=== PATIENT | female | born 1990 | race American Indian/Alaskan Native ===

== ENCOUNTER 2017-08-29 17:29 | Outpatient (CLI) | payer MEDICAID ==
[2017-08-29 18:16] VITALS: BP 119/64
[2017-08-29] MEDS ORDERED: LACTATED RINGERS 1,000 ML IV SCH (19:00)
[2017-08-29] MEDS ORDERED: VISTARIL PO ONE (19:00)
== END 2017-08-29 19:12 | disposition home or self-care (01) ==
LOC: TRG 17:29
PROVIDERS: ATTEND Obstetrics & Gynecology
DX: Z34.93 Encounter for supervision of normal pregnancy, unspecified, third trimester (principal); Z3A.37 37 weeks gestation of pregnancy
CPT/HCPCS: 59025; 96360; J7120; Q0177

== ENCOUNTER 2017-09-11 11:10 | Inpatient (IN) | payer MEDICAID ==
[2017-09-11] MEDS ORDERED: LACTATED RINGERS 1,000 ML ONE ×2 (13:59→15:08)
[2017-09-11 15:53] LABS: Bacteria,Urine 2+ /HPF (Negative); Bilirubin,Urine NEG (Negative); Blood,Urine MOD (Negative); Color,Urine Yellow (Yellow); Mucus,Urine 1+ /HPF; Nitrite,Urine NEG (Negative); Urobilinogen,Urine < 2.0 mg/dL (<2.0)
[2017-09-11 15:53] LABS: Hematocrit 28.8 % (30.3-42.9); Hemoglobin 9.2 gm/dl (10.1-14.3); Mean Corpuscular HGB Conc 32 % (30-34); Mean Corpuscular Volume 78 fl (79-97); Platelet Count 238 K/mm3 (140-440); Red Blood Count 3.67 M/mm3 (3.65-5.03); Red Cell Distribution Width 16.5 % (13.2-15.2)
[2017-09-11 15:57] LABS: Mean Corpuscular Hemoglobin 25 pg (28-32)
[2017-09-11 16:17] LABS: Amphetamine Screen,Urine PRESUMPTIVE NEGATIVE; Benzodiazepines Screen,Urine PRESUMPTIVE NEGATIVE; Cannabinoid Screen,Urine PRESUMPTIVE NEGATIVE; Cocaine Screen,Urine PRESUMPTIVE NEGATIVE; Methadone Screen,Urine PRESUMPTIVE NEGATIVE; Opiate Screen,Urine PRESUMPTIVE NEGATIVE
[2017-09-11] MEDS: SUBLIMAZE IV PRN ×2 (18:24→23:54)
[2017-09-11] MEDS ORDERED: AMBIEN PO PRN (20:58)
[2017-09-11] MEDS ORDERED: COLACE PO PRN (20:58)
[2017-09-11] MEDS ORDERED: TYLENOL PO PRN (20:58)
[2017-09-11] MEDS ORDERED: MYLICON PO PRN (20:58)
[2017-09-11] MEDS ORDERED: ZOFRAN IV PRN (20:58)
--- NOTE | 2017-09-11 21:11 | History and Physical Report ---
History of Present Illness Date of examination: 09/11/17 (late entry) Date of admission: 09/11/17 14:14 Chief complaint: contractions History of present illness: pt presents c/o contractions. She has had pnc in [facility] but states she has moved to this area and hence the reason for f/u at this the hospital. Pt was in latent labor but noted to have variable decel times one. sono done and showed RADHA of 4.6cm. At time of admission pt did not have favorable cx, so plan was to admit hydrate and repeat sono in am. Since admission, contractions have spaced and pt pain has improved. Pt last seen by her ob on last week and states sono showed EFW of 7lbs 4oz. Past History Past Medical History: no pertinent history Past Surgical History: no surgical history [employer] History: denies: abnormal PAP smear, chlamydia, gonorrhea Social history: no significant social history, single - Obstetrical History Expected Date of Delivery: 09/16/17 Actual Gestation: 39 Week(s) 3 Day(s) : 1 Medications and Allergies Allergies Allergy/AdvReac Type Severity Reaction Status Date / Time No Known Allergies Allergy Verified 09/11/17 11:17 Home Medications Medication Instructions Recorded Confirmed Last Taken Type Gummies 2 tab PO DAILY 09/11/17 09/11/17 09/09/17 19:00 History Active Meds: Active Medications Acetaminophen (Tylenol) 650 mg PO Q4H PRN PRN Reason: Pain MILD(1-3)/Fever >100.5/ARAGON Docusate Sodium (Colace) 100 mg PO Q12H PRN PRN Reason: Constipation Fentanyl (Sublimaze) 100 mcg IV Q2H PRN PRN Reason: Labor Pain Last Admin: 09/11/17 18:24 Dose: 100 mcg Lactated Ringer's (Lactated Ringers) 1,000 mls @ 125 mls/hr IV DIRECT ADAM Multivitamins/Iron/Calcium ( Vitamin) 1 each PO QDAY ADAM Ondansetron HCl (Zofran) 4 mg IV Q6H PRN PRN Reason: Nausea And Vomiting Simethicone (Mylicon) 80 mg PO Q6H PRN PRN Reason: Gas pain Zolpidem Tartrate (Ambien) 10 mg PO ONCE PRN PRN Reason: Sleep - Vital Signs Vital signs: Vital Signs Pulse Pulse Ox 104 H 97 09/11/17 11:18 09/11/17 11:18 Temp Pulse Resp BP Pulse Ox 98.7 F 86 18 130/72 97 09/11/17 19:00 09/11/17 19:09 09/11/17 18:24 09/11/17 19:09 09/11/17 18:13 - Physical Exam Cardiovascular: Normal S1, Normal S2 Lungs: Positive: Clear to auscultation Abdomen: Positive: normal appearance, soft. Negative: distention, tenderness, guarding Genitourinary (Female): Positive: normal external genitalia, normal perenium - Obstetrical FHR: category 1 Results Result Diagrams: 09/11/17 14:00 Abnormal lab results 09/11/17 Range/Units 14:00 WBC 11.7 H (4.5-11.0) K/mm3 Hgb 9.2 L (10.1-14.3) gm/dl Hct 28.8 L (30.3-42.9) % MCV 78 L (79-97) fl MCH 25 L (28-32) pg RDW 16.5 H (13.2-15.2) % All other labs normal. Assessment and Plan - Patient Problems (1) 39 weeks gestation of Current Visit: Yes Status: Acute (2) RADHA (amniotic fluid index) borderline low Current Visit: Yes Status: Acute Plan to address problem: -admit -cx not favorable. IV hydrate and repeat RADHA in the am (3) Anemia affecting in third trimester Current Visit: Yes Status: Acute (4) Labor, prolonged latent phase Current Visit: Yes Status: Acute Plan to address problem: -monitor if becomes active with augment if needed
[2017-09-11] MEDS: LACTATED RINGERS 1,000 ML IV SCH (22:21)
[2017-09-12] MEDS: SUBLIMAZE IV PRN (02:06)
[2017-09-12] MEDS: LACTATED RINGERS 1,000 ML IV SCH ×3 (02:13→08:21)
[2017-09-12] MEDS ORDERED: ePHEDrine SULFATE ONE (02:33)
[2017-09-12] MEDS ORDERED: ePHEDrine SULFATE IV PRN ×2 (04:28→06:54)
[2017-09-12] MEDS ORDERED: NARCAN 2 MG/2 ML IV PRN (04:28)
--- NOTE | 2017-09-12 04:29 | Anesthesia Consultation ---
Anesthesia Consult and Med Hx Date of service: 09/12/17 - Airway Anesthetic Teeth Evaluation: Good ROM Head & Neck: Adequate Mental/Hyoid Distance: Adequate Mallampati Class: Class II Intubation Access Assessment: Probably Good - Pulmonary Exam CTA: Yes - Cardiac Exam Cardiac Exam: RRR - Pre-Operative Health Status ASA Pre-Surgery Classification: ASA2 Proposed Anesthetic Plan: Epidural - Pulmonary Hx Smoking: No Hx Asthma: No COPD: No Hx Pneumonia: No - Cardiovascular System Hx Hypertension: No - Central Nervous System Hx Seizures: No Hx Psychiatric Problems: No - Endocrine Hx Renal Disease: No Hx End Stage Renal Disease: No Hx Hypothyroidism: No Hx Hyperthyroidism: No - Hematic Hx Anemia: No Hx Sickle Cell Disease: No - Other Systems Hx Alcohol Use: No
[2017-09-12] MEDS ORDERED: fentaNYL-BUPIV 2 MCG/ML-0.125% 200 MCG/100 ML BAG EPIDURAL SCH (05:00)
[2017-09-12] MEDS ORDERED: PITOCin/NS 30 UNIT/500ML 30,000 MILLIUNITS/500 ML BAG IV ONE (05:29)
[2017-09-12] MEDS ORDERED: PITOCin/NS 30 UNIT/500ML 30,000 MILLIUNITS/500 ML BAG IV SCH (05:31)
--- NOTE | 2017-09-12 06:51 | Progress Note ---
Assessment and Plan - Patient Problems (1) 39 weeks gestation of Current Visit: Yes Status: Acute (2) RADHA (amniotic fluid index) borderline low Current Visit: Yes Status: Acute (3) Anemia affecting in third trimester Current Visit: Yes Status: Acute (4) Labor, prolonged latent phase Current Visit: Yes Status: Resolved (5) Active labor at term Current Visit: Yes Status: Acute Plan to address problem: -con't pitocin -anticipate Subjective - Subjective Date of service: 09/12/17 Principal diagnosis: 39 weeks active labor s/p SROM Interval history: Pt now s/p SROM with clear fluid noted. IUPC and ISE have been placed. Cx is now 6/80/0. Pt tolerated the procedure and placement. Plan of care d/w pt and questions were addressed and answered. Will start pitocin at this time as pt is SROM and making slow labor progression. Patient reports: movement normal, contractions, no new complaints Objective - Vital Signs Vital Signs: Vital Signs - 12hr 09/11/17 09/11/17 09/11/17 19:00 19:09 23:55 Temperature 98.7 F 98.8 F Pulse Rate 86 86 90 Respiratory 18 Rate Blood Pressure 130/72 Blood Pressure 130/72 125/70 [Right] O2 Sat by Pulse Oximetry 09/11/17 09/12/17 09/12/17 23:57 01:42 01:47 Temperature Pulse Rate 90 90 89 Respiratory Rate Blood Pressure 125/70 Blood Pressure [Right] O2 Sat by Pulse 99 98 Oximetry 09/12/17 09/12/17 09/12/17 01:52 01:57 02:02 Temperature Pulse Rate 80 99 H 75 Respiratory Rate Blood Pressure Blood Pressure [Right] O2 Sat by Pulse 99 99 99 Oximetry 09/12/17 09/12/17 09/12/17 02:07 02:08 02:12 Temperature Pulse Rate 105 H 85 86 Respiratory Rate Blood Pressure Blood Pressure [Right] O2 Sat by Pulse 98 91 93 Oximetry 09/12/17 09/12/17 09/12/17 02:17 02:22 02:27 Temperature Pulse Rate 88 82 72 Respiratory Rate Blood Pressure Blood Pressure [Right] O2 Sat by Pulse 98 94 94 Oximetry 09/12/17 09/12/17 09/12/17 02:32 02:37 02:42 Temperature Pulse Rate 121 H 110 H 122 H Respiratory Rate Blood Pressure Blood Pressure [Right] O2 Sat by Pulse 97 95 96 Oximetry 09/12/17 09/12/17 09/12/17 02:47 02:48 02:50 Temperature Pulse Rate 92 H 103 H 97 H Respiratory Rate Blood Pressure 121/96 132/78 Blood Pressure [Right] O2 Sat by Pulse 99 Oximetry 09/12/17 09/12/17 09/12/17 02:51 02:52 02:53 Temperature Pulse Rate 101 H 97 H 102 H Respiratory Rate Blood Pressure 136/78 126/76 Blood Pressure [Right] O2 Sat by Pulse 98 Oximetry 09/12/17 09/12/17 09/12/17 02:56 02:57 03:00 Temperature Pulse Rate 87 109 H 81 Respiratory Rate Blood Pressure 139/86 138/81 Blood Pressure [Right] O2 Sat by Pulse 97 Oximetry 09/12/17 09/12/17 09/12/17 03:01 03:03 03:06 Temperature Pulse Rate 87 94 H 82 Respiratory Rate Blood Pressure 129/77 131/80 134/86 Blood Pressure [Right] O2 Sat by Pulse Oximetry 09/12/17 09/12/17 09/12/17 03:07 03:10 03:11 Temperature 98.3 F Pulse Rate 90 78 73 Respiratory 22 Rate Blood Pressure 147/88 134/69 Blood Pressure 128/70 [Right] O2 Sat by Pulse 100 Oximetry 09/12/17 09/12/17 09/12/17 03:12 03:14 03:16 Temperature Pulse Rate 87 73 83 Respiratory Rate Blood Pressure 125/69 128/70 Blood Pressure [Right] O2 Sat by Pulse 97 Oximetry 09/12/17 09/12/17 09/12/17 03:20 03:21 03:24 Temperature Pulse Rate 86 76 90 Respiratory Rate Blood Pressure 120/75 116/70 Blood Pressure [Right] O2 Sat by Pulse 97 Oximetry 09/12/17 09/12/17 09/12/17 03:26 03:31 03:36 Temperature Pulse Rate 77 89 89 Respiratory Rate Blood Pressure 110/56 Blood Pressure [Right] O2 Sat by Pulse 96 96 97 Oximetry 09/12/17 09/12/17 09/12/17 03:41 03:46 03:51 Temperature Pulse Rate 83 92 H 91 H Respiratory Rate Blood Pressure 119/58 Blood Pressure [Right] O2 Sat by Pulse 97 96 96 Oximetry 09/12/17 09/12/17 09/12/17 03:56 03:57 04:01 Temperature Pulse Rate 85 89 88 Respiratory Rate Blood Pressure 112/69 Blood Pressure [Right] O2 Sat by Pulse 97 97 Oximetry 09/12/17 09/12/17 09/12/17 04:05 04:06 04:07 Temperature Pulse Rate 102 H 80 77 Respiratory Rate Blood Pressure 119/62 Blood Pressure [Right] O2 Sat by Pulse 91 97 Oximetry 09/12/17 09/12/17 09/12/17 04:11 04:16 04:21 Temperature Pulse Rate 90 89 94 H Respiratory Rate Blood Pressure 112/59 Blood Pressure [Right] O2 Sat by Pulse 97 97 97 Oximetry 09/12/17 09/12/17 09/12/17 04:26 04:28 04:31 Temperature Pulse Rate 87 88 96 H Respiratory Rate Blood Pressure 115/57 Blood Pressure [Right] O2 Sat by Pulse 96 96 Oximetry 09/12/17 09/12/17 09/12/17 04:36 04:41 04:46 Temperature Pulse Rate 94 H 95 H 98 H Respiratory Rate Blood Pressure 110/57 118/59 Blood Pressure [Right] O2 Sat by Pulse 97 97 Oximetry 09/12/17 09/12/17 09/12/17 04:53 04:57 04:58 Temperature Pulse Rate 89 94 H 89 Respiratory Rate Blood Pressure 125/71 Blood Pressure [Right] O2 Sat by Pulse 97 97 Oximetry 09/12/17 09/12/17 09/12/17 05:03 05:06 05:08 Temperature Pulse Rate 91 H 93 H 84 Respiratory Rate Blood Pressure 128/73 Blood Pressure [Right] O2 Sat by Pulse 96 97 Oximetry 09/12/17 09/12/17 09/12/17 05:13 05:18 05:23 Temperature Pulse Rate 85 91 H 108 H Respiratory Rate Blood Pressure Blood Pressure [Right] O2 Sat by Pulse 97 98 98 Oximetry 09/12/17 09/12/17 09/12/17 05:28 05:33 05:38 Temperature Pulse Rate 97 H 87 91 H Respiratory Rate Blood Pressure Blood Pressure [Right] O2 Sat by Pulse 98 98 99 Oximetry 09/12/17 09/12/17 09/12/17 05:43 05:48 05:53 Temperature Pulse Rate 86 84 72 Respiratory Rate Blood Pressure Blood Pressure [Right] O2 Sat by Pulse 98 100 100 Oximetry 09/12/17 09/12/17 09/12/17 05:58 06:03 06:07 Temperature Pulse Rate 71 74 86 Respiratory Rate Blood Pressure 119/88 Blood Pressure [Right] O2 Sat by Pulse 100 100 Oximetry 09/12/17 09/12/17 09/12/17 06:08 06:13 06:18 Temperature Pulse Rate 69 70 71 Respiratory Rate Blood Pressure Blood Pressure [Right] O2 Sat by Pulse 100 100 100 Oximetry 09/12/17 09/12/17 09/12/17 06:23 06:28 06:33 Temperature Pulse Rate 70 93 H 79 Respiratory Rate Blood Pressure Blood Pressure [Right] O2 Sat by Pulse 100 99 100 Oximetry 09/12/17 06:38 Temperature Pulse Rate 94 H Respiratory Rate Blood Pressure Blood Pressure [Right] O2 Sat by Pulse 99 Oximetry - Exam FHR: category 2 (early and late varibale decels noted but currently cat I tracing) - Labs Labs: Abnormal Labs 09/11/17 14:00 WBC 11.7 H Hgb 9.2 L Hct 28.8 L MCV 78 L MCH 25 L RDW 16.5 H Laboratory Results - last 24 hr 09/11/17 09/11/17 09/11/17 14:00 14:00 14:20 WBC 11.7 H RBC 3.67 Hgb 9.2 L Hct 28.8 L MCV 78 L MCH 25 L MCHC 32 RDW 16.5 H Plt Count 238 Urine Color Yellow Urine Turbidity Clear Urine pH 6.0 Ur Specific [place] 1.020 Urine Protein 30 mg/dl Urine Glucose (UA) Neg Urine Ketones Neg Urine Blood Mod Urine Nitrite Neg Urine Bilirubin Neg Urine Urobilinogen < 2.0 Ur Leukocyte Esterase Tr Urine WBC (Auto) 3.0 Urine RBC (Auto) 1.0 U Epithel Cells (Auto) 3.0 Urine Bacteria (Auto) 2+ Urine Mucus 1+ Urine Opiates Screen Urine Methadone Screen Ur Barbiturates Screen Ur Phencyclidine Scrn Ur Amphetamines Screen U Benzodiazepines Scrn Urine Cocaine Screen U Marijuana (THC) Screen Drugs of Abuse Note Blood Type O POSITIVE Antibody Screen Negative 09/11/17 14:20 WBC RBC Hgb Hct MCV MCH MCHC RDW Plt Count Urine Color Urine Turbidity Urine pH Ur Specific [place] Urine Protein Urine Glucose (UA) Urine Ketones Urine Blood Urine Nitrite Urine Bilirubin Urine Urobilinogen Ur Leukocyte Esterase Urine WBC (Auto) Urine RBC (Auto) U Epithel Cells (Auto) Urine Bacteria (Auto) Urine Mucus Urine Opiates Screen Presumptive negative Urine Methadone Screen Presumptive negative Ur Barbiturates Screen Presumptive negative Ur Phencyclidine Scrn Presumptive negative Ur Amphetamines Screen Presumptive negative U Benzodiazepines Scrn Presumptive negative Urine Cocaine Screen Presumptive negative U Marijuana (THC) Screen Presumptive negative Drugs of Abuse Note Disclamer Blood Type Antibody Screen
[2017-09-12] MEDS ORDERED: BRETHINE IVP PRN (06:54)
[2017-09-12] MEDS ORDERED: MINERAL OIL PO PRN (06:54)
[2017-09-12] MEDS ORDERED: BRETHINE SUB-Q PRN (06:54)
[2017-09-12] MEDS ORDERED: XYLOCAINE 2% INFILTRATI ONE (06:54)
[2017-09-12] MEDS ORDERED: PITOCin/NS 20 UNIT/1000ML DRIP 20 UNITS/1,000 ML BAG IV SCH (07:00)
[2017-09-12] MEDS ORDERED: LACTATED RINGERS 1,000 ML IV SCH (07:00)
--- NOTE | 2017-09-12 09:25 | Procedure Note ---
OB Delivery Note - Delivery Date of Delivery: 09/12/17 Surgeon: PREMA HAMM Estimated blood loss: 300cc - Vaginal Delivery presentation: vertex Delivery position: OA Intrapartum events: none Delivery induction: none Delivery augmentation: pitocin Delivery monitor: external FHT, external uterine, internal FHT, internal uterine Route of delivery: Delivery placenta: spontaneous Delivery cord: 3 umbilical vessels Episiotomy: none Delivery laceration: 2nd degree (vaginal) Anesthesia: local, epidural Delivery comments: Delivery as above. No shoulder dystocia. no nuchal cord present. Infant placed on maternal abdomen after delivery. Lacerations noted as above and repaired in usual fashion with 3-0 vicrly. Mother and stable in LDR. - Infant A at 1 minute: 8 at 5 minutes: 9 Infant Gender: Male (7lbs 2 oz)
--- NOTE | 2017-09-12 09:54 | Ultrasound Report ---
ULTRASOUND OB LIMITED History: well being, check RADHA Technique: Transabdominal ultrasound with Doppler interrogation. Gestation: Single Position: Cephalic Amniotic Fluid: Decreased RADHA = 4.6 cm Heart Rate: 137 BPM
[2017-09-12] MEDS ORDERED: PRENATAL VITAMIN PO SCH (10:00)
[2017-09-12] MEDS ORDERED: TUCKS PAD TP ONE (12:53)
[2017-09-12] MEDS ORDERED: DERMOPLAST TP ONE (12:53)
[2017-09-12] MEDS ORDERED: PHENERGAN PR PRN (13:12)
[2017-09-12] MEDS ORDERED: LANSINOH TP PRN (13:12)
[2017-09-12] MEDS ORDERED: NORCO 5/325 PO PRN (13:12)
[2017-09-12] MEDS ORDERED: DULCOLAX PR PRN (13:12)
[2017-09-12] MEDS ORDERED: MILK OF MAGNESIA PO PRN (13:12)
[2017-09-12] MEDS ORDERED: PHENERGAN PO PRN (13:12)
[2017-09-12] MEDS ORDERED: BENADRYL PO PRN (13:12)
[2017-09-12] MEDS ORDERED: TYLENOL PO PRN (13:12)
[2017-09-12] MEDS ORDERED: ZOFRAN IV PRN (13:12)
[2017-09-12] MEDS ORDERED: TUCKS PAD TP PRN (13:12)
[2017-09-12] MEDS ORDERED: SODIUM CHLORIDE FLUSH SYRINGE 10 ML IV NR (14:00)
[2017-09-12] MEDS: MOTRIN PO SCH ×2 (15:00→20:58)
--- NOTE | 2017-09-13 06:21 | Progress Note ---
Assessment and Plan - Patient Problems (1) Spontaneous vaginal delivery Onset Date: ~09/12/17 Current Visit: Yes Status: Acute Plan to address problem: pt w/o complaint VSS FF below umb Lochia scant Perineum intact H&H 02/27 Chronic anemia Drop r/t blood loss from delivery Doing well s/p vag delivery P: continue pathway D/C tomorrow Subjective - Subjective Date of service: 09/13/17 (pt w/o complaint) Principal diagnosis: Day # 1 s/p vaginal delivery Patient reports: appetite normal, voiding normally, pain well controlled, ambulating normally [place]ard: doing well (GBS unnown ) Objective - Vital Signs Latest vital signs: Vital Signs Temp Pulse Resp BP BP Pulse Ox 09/13/17 00:27 98.7 F 93 H 20 118/80 09/12/17 20:58 18 09/12/17 20:12 98.1 F 105 H 18 124/71 09/12/17 17:00 98.5 F 101 H 18 121/57 09/12/17 09:59 120 H 141/84 09/12/17 09:55 120 H 18 141/84 09/12/17 09:44 109 H 126/72 09/12/17 09:40 109 H 18 126/72 09/12/17 09:29 113 H 124/71 09/12/17 09:25 113 H 18 124/71 09/12/17 09:14 93 H 139/89 09/12/17 09:10 98.8 F 93 H 18 139/89 09/12/17 09:07 103 H 131/96 09/12/17 08:23 103 H 77 L 09/12/17 08:18 99 H 100 09/12/17 08:13 107 H 100 09/12/17 08:08 107 H 100 09/12/17 08:07 103 H 139/91 09/12/17 08:03 117 H 100 09/12/17 07:58 89 100 09/12/17 07:53 91 H 98 09/12/17 07:52 112 H 84 09/12/17 07:48 98 H 98 09/12/17 07:43 106 H 96 09/12/17 07:38 99 H 99 09/12/17 07:33 91 H 98 09/12/17 07:28 85 99 09/12/17 07:23 83 99 02/04/18 07:18 100 H 99 09/12/17 07:13 90 100 09/12/17 07:08 84 100 09/12/17 07:07 70 120/70 09/12/17 07:03 72 100 09/12/17 06:58 92 H 99 09/12/17 06:53 87 100 09/12/17 06:48 77 100 09/12/17 06:43 93 H 99 09/12/17 06:38 94 H 99 09/12/17 06:33 79 100 09/12/17 06:28 93 H 99 09/12/17 06:23 70 100 Intake and Output 09/12/17 09/12/17 09/13/17 14:59 22:59 06:59 Intake Total 684.583 240 360 Output Total 550 300 Balance 134.583 -60 360 Intake: IV 564.583 Lactated Ringers 1,000 ml 439.583 @ 125 mls/hr IV DIRECT ADAM Rx#:[id number] Left Forearm 125 Oral 120 240 Intake, Free Water 360 Output: Urine 550 300 Void 550 300 Other: Total, Intake Amount 120 240 Total, Output Amount 550 300 # Voids Void 2 Estimated Blood Loss 300 - Exam Breasts: Present: normal Cardiovascular: Present: Regular rate Lungs: Present: Clear to auscultation, Normal air movement Abdomen: Present: normal appearance, soft, normal bowel sounds Vulva: both: normal Uterus: Present: normal, fundal height below umbilicus Extremities: Present: normal Incision: Present: normal - Labs Labs: Abnormal lab results 09/13/17 Range/Units 01:19 Hgb 7.0 L (10.1-14.3) gm/dl Hct 22.0 L D (30.3-42.9) %
[2017-09-13] MEDS: MOTRIN PO SCH ×4 (06:25→23:48)
--- NOTE | 2017-09-13 10:50 | Progress Note ---
Subjective Date of service: 09/13/17 Principal diagnosis: Day # 1 s/p vaginal delivery Interval history: 1st day after normal vaginal delivery Patient is in the bed, comfortable. Pain is well controlled with pain meds. Ambulated well. No residual neurological deficit. No anesthesia complications Objective - Constitutional Vitals: Vital Signs - 12hr 09/13/17 09/13/17 09/13/17 00:27 06:25 08:55 Temperature 98.7 F 98.6 F Pulse Rate 93 H 99 H Respiratory 20 18 18 Rate Blood Pressure 118/80 120/71 [Right] - Labs CBC & Chem 7: 09/13/17 01:19 Labs: Abnormal lab results 09/13/17 Range/Units 01:19 Hgb 7.0 L (10.1-14.3) gm/dl Hct 22.0 L D (30.3-42.9) %
[2017-09-13] MEDS: FEOSOL PO SCH ×2 (11:36→23:48)
[2017-09-13] MEDS ORDERED: BOOSTRIX IM ONE (13:12)
[2017-09-14] MEDS: MOTRIN PO SCH ×2 (06:23→13:51)
--- NOTE | 2017-09-14 07:55 | Discharge Summary ---
Providers - Providers Date of Admission: 09/11/17 14:14 Date of discharge: 09/14/17 (desires d/c home today) Attending physician: PREMA HAMM Primary care physician: PREMA HAMM Hospitalization Reason for admission: labor Condition: Good Procedures: vaginal delivery Hospital course: uncomplicated vaginal delivery with repair of 2nd degree, normal course Disposition: DC-01 TO HOME OR SELFCARE - Discharge Diagnoses (1) Anemia affecting in third trimester Status: Acute (2) Spontaneous vaginal delivery Status: Acute Core Measure Documentation - Palliative Care Palliative Care/ Comfort Measures: Not Applicable - Core Measures Any of the following diagnoses?: none Exam - Constitutional Vitals: Temp Pulse Resp BP Pulse Ox 98.8 F 86 18 127/86 98 09/14/17 00:45 09/14/17 00:45 09/14/17 00:45 09/14/17 00:45 09/14/17 00:45 General appearance: Present: no acute distress, well-nourished - EENT Eyes: Present: PERRL ENT: hearing intact, clear oral mucosa - Neck Neck: Present: supple, normal ROM - Respiratory Respiratory effort: normal Respiratory: bilateral: CTA - Cardiovascular Heart Sounds: Present: S1 & S2. Absent: rub, click - Extremities Extremities: pulses symmetrical, No edema - Abdominal General gastrointestinal: Present: soft, non-tender, non-distended, normal bowel sounds Female genitourinary: Present: normal - Integumentary Integumentary: Present: clear, warm, dry - Musculoskeletal Musculoskeletal: gait normal, strength equal bilaterally - Psychiatric Psychiatric: appropriate mood/affect, intact judgment & insight - Neurologic Neurologic: CNII-XII intact, moves all extremities - Additional findings Additional findings: Lochia scant, perineum slightly swollen, 2nd degree repair intact. VSSAF, H&H stable - preexisting anemia prior to delivery. asymptomatic. Plan Activity: no restrictions Diet: regular Special Instructions: no heavy lifting Follow up with: PREMA HAMM MD [Primary Care Provider] - 7 Days (Congratulations! Please call [phone] to schedule your son's circumcison in 1 week and your visit in 4 weeks. Bring EMLA cream to your son's visit and await further instructions. Call for any questions or concerns. ) Prescriptions: Lidocain2.5%/Prilocai2.5% [Emla] 2 gm TP ONCE #1 tube
[2017-09-14] MEDS: FEOSOL PO SCH (09:31)
[2017-09-14 20:21] VITALS: BP 123/82
== END 2017-09-14 20:40 | disposition home or self-care (01) | DRG 775 ==
LOC: TRG 11:10 → LD 14:14 → OB 09-12 11:28
PROVIDERS: ADMIT Obstetrics & Gynecology; ATTEND Obstetrics & Gynecology
PROC: 10E0XZZ Delivery of Products of Conception, External Approach (ICD-10-PCS; principal; 2017-09-12)
PROC: 0KQM0ZZ Repair Perineum Muscle, Open Approach (ICD-10-PCS; 2017-09-12)
PROC: 3E0R3BZ Introduction of Anesthetic Agent into Spinal Canal, Percutaneous Approach (ICD-10-PCS; 2017-09-12)
PROC: 00HU33Z Insertion of Infusion Device into Spinal Canal, Percutaneous Approach (ICD-10-PCS; 2017-09-12)
PROC: 3E0234Z Introduction of Serum, Toxoid and Vaccine into Muscle, Percutaneous Approach (ICD-10-PCS; 2017-09-13)
DX: O76 Abnormality in fetal heart rate and rhythm complicating labor and delivery (principal); O99.02 Anemia complicating childbirth; D64.9 Anemia, unspecified; Z37.0 Single live birth; Z3A.39 39 weeks gestation of pregnancy; Z23 Encounter for immunization; O63.0 Prolonged first stage (of labor); O70.1 Second degree perineal laceration during delivery
CPT/HCPCS: 36415; 76815; 80307; 81001; 85014; 85018; 85027; 86592; 86850; 86900; 86901; 99211; A6250; G0463; J2590; J3010; J7120